=== PATIENT | female | born 1955 | race Caucasian/White ===

== ENCOUNTER 2024-08-21 00:40 | Inpatient (IN) | payer MEDICARE, BC ==
[~2024-08-21] VITALS: Ht 175.3 cm; Wt 75.3 kg
[2024-08-21 14:00] VITALS: BP 120/77; PULSE 74; RESP 16; TEMP 97.8; O2SAT 98
--- NOTE | 2024-08-21 15:27 | DVHHP2 ---
History of Present Illness Reason for Visit: Abdominal pain History of Present Illness 68-year-old female who is transferred from [facility] to get Interventional Radiology to place a cholecystostomy tube due to the fact that she developed gallbladder disease but she could not get the surgery done because of her liver cirrhosis Apparently she went therefore pneumonia and was treated therefore the pneumonia but she was having abdominal pain and was found to have cholelithiasis and therefore she was sent here She was admitted directly She is complaining of right upper quadrant abdominal pain She says she is hungry and wants to eat Workup at [facility]: MRCP: Acute cholecystitis with stones and sludge HIDA: Same US abd: Pancreatic head mass: 1.1 x 1.3 cm 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 (Multiple sclerosis) GI: Other (Cirrhosis) Endocrine: Diabetes Review of Systems Gastrointestinal: Abdominal Pain Allergies: Coded Allergies: Ciprofloxacin (Verified Allergy, Unknown, 08/21/24) Levofloxacin (Verified Allergy, Unknown, 08/21/24) Phenytoin (Verified Allergy, Unknown, 08/21/24) Sulfamethoxazole w/Trimethoprim (Verified Allergy, Unknown, 08/21/24) Exam Vital Signs Vital Signs Date Time Temp Pulse Resp B/P (MAP) Pulse Ox O2 Delivery O2 Flow Rate FiO2 08/21/24 14:00 97.8 74 16 120/77 (91) 98 97.8 General Appearance: Alert, Oriented X3, Cooperative, No acute distress Respiratory: Clear to auscultation, Normal air movement Cardiovascular: Regular rate, Normal S1, Normal S2 Abdominal: Normal bowel sounds, Soft, No tenderness, No hepatospenomegaly, No masses Extremities: No edema Assessment/Plan Assessment/Plan Acute cholecystitis Liver cirrhosis Type 2 diabetes Multiple sclerosis Recent pneumonia Thrombocytopenia Chronic pain Pancreatic head mass Plan Admit to med surge Low-fat diet Consult IR for cholecystostomy Consult GI Morphine as needed Zofran as needed Pepcid IV Monitor closely Accu-Cheks Full code Advance directives discussed for 17 minutes Plan discussed with: Patient Date of Service: August 21, 2024 Billing Provider: TREY NARAYAN MD Common Visit Codes: [id number] INP/OBS CARE (HIGH) Secondary Visit Codes: [id number] CARE PLAN 30 MINUTES TREY NARAYAN MD August 21, 2024 15:27
[2024-08-21] MEDS ORDERED: NITROGLYCERIN 0.4 MG SL TAB SL PRN (15:30)
[2024-08-21] MEDS ORDERED: ONDANSETRON HCL 4 MG/2 ML VIAL IV PRN (15:30)
[2024-08-21] MEDS ORDERED: DEXTROSE (50%) 50ML SYRG IV PRN (15:45)
[2024-08-21] MEDS: MORPHINE SULFATE INJ 2 MG/ml SYRG IV PRN ×2 (15:56)
[2024-08-21 16:22] VITALS: PULSE 77
[2024-08-21 16:33] LABS: Basophils # (auto) 0 10 ^3/uL (0-0.2); Eosinophils # (auto) 0.1 10 ^3/uL (0-0.8); Hemoglobin 10.4 g/dL (12.2-16.2); Lymphocytes # (auto) 0.4 10 ^3/uL (0.4-5.4); Monocytes # (auto) 0.3 10 ^3/uL (0-1.3); Neutrophils # (auto) 1.8 10 ^3/uL (1.6-8.6); Nucleated Red Blood Cells % 0.1 %; Red Blood Cells 3.93 10^6/uL (4.0-5.20); White Blood Cell 2.6 10^3/uL (4.4-10.8)
[2024-08-21 16:35] LABS: Basophils % (auto) 0.6 % (0.0-2.0); Eosinophils % (auto) 3.8 % (0.0-7.0); Hematocrit 32.6 % (36.0-46.0); Lymphocytes % (auto) 14.5 % (10.0-50.0); Mean Corpuscular Hemoglobin 26.5 pg (28.0-32.0); Mean Corpuscular Volume 82.8 fL (80.0-100.0); Neutrophils % (auto) 70.1 % (37.0-80.0); Platelet Count (auto) 94 10^3/uL (140-450); Red Cell Distribution Width 17.5 % (11.8-14.3)
[2024-08-21] MEDS ORDERED: NALO4SPR2 (16:44)
[2024-08-21] MEDS ORDERED: ZOFR4T PO (16:44)
[2024-08-21] MEDS ORDERED: METF-929 PO (16:44)
[2024-08-21] MEDS ORDERED: INSU1INJ19 SC (16:44)
[2024-08-21] MEDS ORDERED: BACL10TA PO (16:44)
[2024-08-21] MEDS ORDERED: GABA-1250 PO (16:44)
[2024-08-21] MEDS ORDERED: LEV75T PO (16:44)
[2024-08-21 16:48] VITALS: BP 133/71; PULSE 76; RESP 16; TEMP 98.2; O2SAT 97
[2024-08-21 16:48] LABS: Alanine Aminotransferase 21 U/L (7-40); Albumin 3.9 g/dL (3.2-4.8); Alkaline Phosphatase 105 U/L (46-116); Anion Gap 9 (5-15); Aspartate Aminotransferase 25 U/L (13-40); BUN/Creatinine Ratio 19.8 (10.0-20.0); Blood Urea Nitrogen 17 mg/dL (9-23); Calcium 9.9 mg/dL (8.7-10.4); Carbon Dioxide 25 mmol/L (20-31); Chloride 105 mmol/L (98-107); INR 1.16 (0.9-1.15); Partial Thromboplastin Time 30.8 SEC (24.5-34.5); Potassium 3.7 mmol/L (3.5-5.1); Prothrombin Time 12.1 sec (9.3-11.8); Sodium 139 mmol/L (136-145); Total Protein 7.5 g/dL (5.7-8.2)
[2024-08-21 16:49] LABS: Bilirubin, Total 0.5 mg/dL (0.2-1.0); Glucose 183 mg/dL (74-106)
[2024-08-21] MEDS ORDERED: SIMV40TA18 PO (16:52)
[2024-08-21] MEDS ORDERED: PANT40T PO (16:52)
[2024-08-21] MEDS ORDERED: OXY5T PO (16:52)
[2024-08-21] MEDS ORDERED: RIME75TA PO (16:52)
[2024-08-21] MEDS ORDERED: VENL225T20 PO (16:52)
[2024-08-21] MEDS ORDERED: TOPI25CA5 PO (16:52)
[2024-08-21] MEDS: AMPICILLIN & SULBACTAM SODIUM 3 GM in SODIUM CHL 0.9% 100 ML IV SCH (17:07)
[2024-08-21] MEDS: InsuLIN REG 1unit/0.01ml Soln (100units/ml) SC SCH (17:07)
[2024-08-21] MEDS: ACCU-CHEK COMFORT CURVE STRIP VI SCH (17:07)
[2024-08-21] MEDS: OXYCODONE W/ ACETAMINOPHEN 5/325MG TABLET PO PRN (17:38)
--- NOTE | 2024-08-21 18:38 | DVHINCON2 ---
Date of service: August 21, [address] hoyt Reason for Consultation This 68-year-old female was transferred from [facility] with problems with gallbladder disease History of Present Illness Patient admitted with gallbladder problems apparently she could not get the surgery done because of the liver cirrhosis she was admitted for pneumonia there and was getting some abdominal pain and hence workup was done which showed the by cholelithiasis. There was apparently distention of the common bile duct also but ultrasound does not show any problems CA HIDA scan showed gallbladder functioning patient also has got cirrhosis of the liver. There was some ultrasound showed some possible pancreatic mass but HIDA scan shows if possible small lipoma patient denies any weight loss patient has got diabetes since 1989 Patient is not jaundiced LFTs are normal Past Medical History Multiple sclerosis cirrhosis diabetes Past Surgical History None Family History Noncontributory Social History Denies smoking or drinking Allergies: Coded Allergies: Ciprofloxacin (Verified Allergy, Unknown, 08/21/24) Levofloxacin (Verified Allergy, Unknown, 08/21/24) Phenytoin (Verified Allergy, Unknown, 08/21/24) Sulfamethoxazole w/Trimethoprim (Verified Allergy, Unknown, 08/21/24) Home Meds Reported Medications Venlafaxine Hcl (Venlafaxine Hcl Er) 225 Mg Tab, 1 TAB PO DAILY, #30 TAB 1 Refill 08/21/24 Topiramate (Topiramate) 25 Mg Cap, 25 MG PO DAILY for 30 Days, MG 08/21/24 Simvastatin (Simvastatin) 40 Mg Tab, 40 MG PO HS for 30 Days 08/21/24 Rimegepant Sulfate (Nurtec) 75 Mg Tab, 75 MG PO DAILY PRN for FOR HEADACHE, TAB 08/21/24 Oxycodone Hcl (OXYCODONE HCL) 5 Mg Tb, 10 MG PO, TAB 08/21/24 Pantoprazole Sodium Sesquihydr (Pantoprazole Sodium) 40 Mg Tab, 40 MG PO BID, TAB 08/21/24 Ondansetron Odt 4MG Tab (ZOFRAN PO) 4 Mg Tb, 4 MG PO Q4HPRN PRN for NAUSEA / VOMITING, TAB ODT TAB-DISSOLVE IN MOUTH, THEN SWALLOW 08/21/24 Naloxone HCl (Narcan) 4 Mg/0.1 Ml Spr, 4 MG NA TIDPRN, SPRAY 08/21/24 Metformin HCl (Metformin Hydrochloride) 1,000 Mg Tab, 1000 MG PO BID, TAB 08/21/24 Levothyroxine Sodium (Synthroid) 75 Mcg Tab, 1 TAB PO DAILY, #30 TAB 5 Refills 08/21/24 Gabapentin (Gabapentin) 300 Mg Cap, 400 MG PO TID for 30 Days, MG 08/21/24 Insulin Glargine (Basaglar Kwikpen) 100 Unit/Ml Inj, 38 UNIT SC HS, INJ 08/21/24 Baclofen (Baclofen) 10 Mg Tab, 10 MG PO DAILY for 30 Days, MG 08/21/24 Current Medications Current Medications Medications (Trade) Dose Ordered Sig/Kenzie Route PRN Reason Start Time Stop Time Status Last Admin Nitroglycerin (Ntrostat Sublingual) 0.4 mg Q5MINP PRN SL FOR CHEST PAIN 08/21/24 15:30 Morphine Sulfate 2 mg Q30M PRN IV FOR CHEST PAIN 08/21/24 15:30 Morphine Sulfate 2 mg Q4HPRN PRN IV SEVERE PAIN (7-10 PAIN SCALE) 08/21/24 15:30 08/21/24 15:56 Ondansetron HCl (Zofran) 4 mg Q4HPRN PRN IV NAUSEA / VOMITING 08/21/24 15:30 Famotidine (Pepcid Injection) 20 mg DAILY IV 08/22/24 10:00 Ampicillin Sodium/ Sulbactam Sodium 3 gm/Sodium Chloride 100 ml @ 100 mls/hr Q6H IV 08/21/24 15:45 08/21/24 17:07 Baclofen (Liorisal Tablet) 10 mg DAILY PO 08/22/24 10:00 Docusate Sodium (Colace Capsule) 100 mg BID PO 08/21/24 22:00 Diagnostic Test (Pha) (Accu-Chek Comfort Curve T) 1 strip ACHS 08/21/24 17:00 08/21/24 17:07 Insulin Human Regular (InsuLIN R) ACHS SC 08/21/24 17:00 08/21/24 17:07 Dextrose 50 ml UD PRN IV Blood Sugar LESS THAN 60 08/21/24 15:45 Gabapentin (Neurontin Capsule) 300 mg TID PO 08/21/24 22:00 Levothyroxine Sodium (Synthroid Tablet) 75 mcg QAM@0600 PO 08/22/24 06:00 Magnesium Oxide (Mag-Ox Tablet) 400 mg BID PO 08/21/24 22:00 Topiramate (Topamax) 25 mg DAILY PO 08/22/24 10:00 Oxycodone/ Acetaminophen (Percocet 5/ 325MG Tablet) 1 tab Q6HP PRN PO MODERATE PAIN (4-6 PAIN SCALE) 08/21/24 16:30 08/21/24 17:38 Review of Systems Non contributory Vital Signs Vital Signs Date Time Temp Pulse Resp B/P (MAP) Pulse Ox O2 Delivery O2 Flow Rate FiO2 08/21/24 16:48 98.2 76 16 133/71 (91) 97 98.2 08/21/24 14:25 Room Air* 0 21 Physical Exam Moderately built and nourished female in no acute distress Vitals stable Lungs are clear Vascular unremarkable Abdomen is soft mild epigastric tenderness no rigidity no guarding no masses Extremities no edema Labs/Diagnostic Data Labs Test 08/21/24 16:48 08/21/24 16:11 Range/Units POC Glucose 169 H 70-106 mg/dl White Blood Count 2.6 L 4.4-10.8 10^3/uL Red Blood Count 3.93 L 4.0-5.20 10^6/uL Hemoglobin 10.4 L 12.2-16.2 g/dL Hematocrit 32.6 L 36.0-46.0 % Mean Corpuscular Volume 82.8 80.0-100.0 fL Mean Corpuscular Hemoglobin 26.5 L 28.0-32.0 pg Mean Corpuscular Hemoglobin Concent 32.0 32.0-36.0 g/dL Red Cell Distribution Width 17.5 H 11.8-14.3 % Platelet Count 94 L 140-450 10^3/uL Mean Platelet Volume 9.3 6.9-10.8 fL Neutrophils (%) (Auto) 70.1 37.0-80.0 % Lymphocytes (%) (Auto) 14.5 10.0-50.0 % Monocytes (%) (Auto) 11.0 0.0-12.0 % Eosinophils (%) (Auto) 3.8 0.0-7.0 % Basophils (%) (Auto) 0.6 0.0-2.0 % Neutrophils # (Auto) 1.8 1.6-8.6 10 ^3/uL Lymphocytes # (Auto) 0.4 0.4-5.4 10 ^3/uL Monocytes # (Auto) 0.3 0-1.3 10 ^3/uL Eosinophils # (Auto) 0.1 0-0.8 10 ^3/uL Basophils # (Auto) 0 0-0.2 10 ^3/uL Nucleated Red Blood Cells 0.1 % Prothrombin Time 12.1 H 9.3-11.8 sec Prothrombin Time INR 1.16 H 0.9-1.15 Activated Partial Thromboplast Time 30.8 24.5-34.5 SEC Sodium Level 139 136-145 mmol/L Potassium Level 3.7 3.5-5.1 mmol/L Chloride Level 105 98-107 mmol/L Carbon Dioxide Level 25 20-31 mmol/L Anion Gap 9 5-15 Blood Urea Nitrogen 17 9-23 mg/dL Creatinine 0.86 0.550-1.02 mg/dL Glomerular Filtration Rate Calc 74 >90 mL/min BUN/Creatinine Ratio 19.8 10.0-20.0 Serum Glucose 183 H 74-106 mg/dL Calcium Level 9.9 8.7-10.4 mg/dL Total Bilirubin 0.5 0.2-1.0 mg/dL Aspartate Amino Transferase (AST) 25 13-40 U/L Alanine Aminotransferase (ALT) 21 7-40 U/L Alkaline Phosphatase 105 46-116 U/L Total Protein 7.5 5.7-8.2 g/dL Albumin 3.9 3.2-4.8 g/dL Assessment 68-year-old with problems possible gallbladder disease admitted with pneumonia was found to have gallstones on ultrasound also possible cirrhosis her liver enzymes are normal she has got pancytopenia consistent with possible liver disease with ultrasound showing possible cirrhosis Denies drinking HIDA scan showed cystic This can showed gallbladder not visualized Ultrasound gallstones sludge MRCP normal ducts Clinical impression Cirrhosis gallstones Plan/Recommendation We will recommend surgical consult and further workup accordingly We will also recommend a workup for liver disease including hepatitis panel DAMION liver copper studies etc. also Thank you Dr. Kamilla Jimenes discussed with: Patient ELEANOR IBARRA MD August 21, 2024 18:38
[2024-08-21 20:00] VITALS: PULSE 76; PULSE 83; RESP 17; O2SAT 98
[2024-08-21 21:00] VITALS: BP 120/66; PULSE 66; RESP 17; TEMP 98; O2SAT 98
[2024-08-21] MEDS: DOCUSATE SOD 100 MG CAP PO SCH (21:34)
[2024-08-21] MEDS: GABAPENTIN 300 MG CAP PO SCH (21:34)
[2024-08-21] MEDS: MAGNESIUM OXIDE 400 MG TAB PO SCH (21:35)
[2024-08-22] VITALS (14 sets, daily range): BP systolic 102–130; BP diastolic 57–70; PULSE 70–82; RESP 12–18; TEMP 97.5–98.2; O2SAT 94–99
[2024-08-22] MEDS: LEVOTHYROXINE SODIUM 25 MCG TAB PO SCH (05:09)
[2024-08-22] MEDS: IODIXANOL 320MG/ML 100ML BTL IV ONE (07:44)
[2024-08-22] MEDS: fentaNYL CITRATE 100 MCG/2 ML VL ONE (08:07)
[2024-08-22] MEDS: LIDOCAINE 2%HCL (LOCAL ANESTH.) INJ 20ML MDV ONE (08:08)
[2024-08-22] MEDS: MIDAZOLAM HCL 2MG/2ML 2ml VIAL (1mg/ml) ONE (08:08)
--- NOTE | 2024-08-22 09:36 | DVH ---
US US GUIDANCE FOR NEEDLE PLACEME, HISTORY: GALLBLADDER DRAINAGE due to acute cholecystitis, positive HIDA scan , abdominal pain. PROCEDURE: Informed consent was obtained. The patient was placed in supine position, and initial limi tanisha ultrasound evaluation of the RUQ abdomen was obtained. The skin overlying the gallbladder was pre pped with chlorhexidine which was allowed to dry and draped in the usual sterile fashion. Time out wa s performed. IV sedation and 1% lidocaine local anesthetic were administered. Using US needle biopsy guide, a 21 g Accu Stick needle was advanced into the gallbladder via a intercostal /,transhepatic ap proach. Following aspiration of bile, a small amount of contrast was injected to delineate the viscou s. The needle was then exchanged over mandrill wire to a non-vascular access set, through which a Amp latz guidewire was advanced into the gallbladder. Following serial dilation, an 8.5 Bel[place]ian multipurpo se pigtail catheter was placed within the gallbladder. Approximately 2 cc of fluid was withdrawn and sent to the laboratory for analysis. The drain was secured in place and attached to gravity drainage. A sterile dressing was applied. No immediate complication was identified. DAP 331 FLUOROSCOPY TIME: 1.8 minutes. CONTRAST USED: 10 mL . SEDATION: Dr. Ileana Magallon was personally responsible for the administration of moderate sedation during the procedure performed, including the use of an independent trained observer who had no other duties during the procedure. The drugs utilized were IV fentanyl and versed (see nursing log for details). The total time of supervision by the attending physician was [id number] minutes. FINDINGS: Limited US scan of the right upper abdomen demonstrates the distended gallbladder. Aspirate d bile is thick. Completion image demonstrates good positioning of the drainage catheter. The cystic duct is obstructed. IMPRESSION: Obstructed cystic duct. US/fluoro-guided percutaneous 8.5 anguillan cholecystostomy tube placement. PLAN: This tube will need to remain in place for at least 6-8 weeks before removal, so as to prevent bile leakage. If cholecystectomy is not planned, please have patient follow-up with IR at discharge t o schedule cholangiogram in 6-8 weeks. If cystic duct patency and tract maturation is established, we will consider clamp trial prior to removal of the tube in 1-2 weeks.
[2024-08-22] MEDS: TOPIRAMATE 25 MG TAB PO SCH (10:36)
[2024-08-22] MEDS: FAMOTIDINE (10MG/ML) 2ML VL IV SCH (10:38)
[2024-08-22 11:01] LABS: Hepatitis B Surface Antigen Negative (Negative); Hepatitis C Antibody Negative (Negative)
[2024-08-22] MEDS: BACLOFEN 10 MG TAB PO SCH (11:33)
[2024-08-22] MEDS: GABAPENTIN 400 MG CAP PO SCH (14:00)
[2024-08-22] MEDS ORDERED: GABAPENTIN 300 MG CAP PO SCH (14:00)
--- NOTE | 2024-08-22 14:44 | DVHPN2 ---
Subjective Complains of abdominal pain Changes from previous H/P or p: Changes Gastrointestinal: Abdominal Pain Objective Vitals Vital Signs Date Time Temp Pulse Resp B/P (MAP) Pulse Ox O2 Delivery O2 Flow Rate FiO2 08/22/24 12:44 97.5 73 16 112/70 (84) 99 97.5 08/22/24 08:00 Room Air* 0 21 Intake/Output Intake and Output 08/22/24 07:00 Intake Total 1540 ml Output Total 350 ml Balance 1190 ml Intake Oral 1240 ml IV Total 300 ml Output Urine Total 350 ml # Voids 8 # Bowel Movements 1 General Appearance: Alert, Oriented X3, Cooperative, No acute distress Lungs: Clear to auscultation, Normal air movement Cardiovascular: Regular rate, Normal S1, Normal S2, No murmurs Abdomen: Normal bowel sounds, Soft, No tenderness Extremities: No edema Medications Current Medications Medications Dose Ordered Sig/Kenzie Route Start Time Stop Time Status Last Admin Dose Admin Nitroglycerin 0.4 mg Q5MINP PRN SL 08/21/24 15:30 Morphine Sulfate 2 mg Q30M PRN IV 08/21/24 15:30 Morphine Sulfate 2 mg Q4HPRN PRN IV 08/21/24 15:30 08/22/24 10:34 2 MG Ondansetron HCl 4 mg Q4HPRN PRN IV 08/21/24 15:30 Famotidine 20 mg DAILY IV 08/22/24 10:00 08/22/24 10:38 20 MG Ampicillin Sodium/ Sulbactam Sodium 3 gm/Sodium Chloride 100 ml @ 100 mls/hr Q6H IV 08/21/24 15:45 08/22/24 10:39 100 MLS/HR Baclofen 10 mg DAILY PO 08/22/24 10:00 08/22/24 11:33 10 MG Docusate Sodium 100 mg BID PO 08/21/24 22:00 08/22/24 10:36 100 MG Diagnostic Test (Pha) 1 strip ACHS 08/21/24 17:00 08/22/24 11:35 1 STRIP Insulin Human Regular ACHS SC 08/21/24 17:00 08/22/24 11:37 2 UNITS Dextrose 50 ml UD PRN IV 08/21/24 15:45 Levothyroxine Sodium 75 mcg QAM@0600 PO 08/22/24 06:00 08/22/24 05:09 75 MCG Magnesium Oxide 400 mg BID PO 08/21/24 22:00 08/22/24 10:36 400 MG Topiramate 25 mg DAILY PO 08/22/24 10:00 08/22/24 10:36 25 MG Oxycodone/ Acetaminophen 1 tab Q6HP PRN PO 08/21/24 16:30 08/22/24 12:13 1 TAB Gabapentin 400 mg TID PO 08/22/24 14:00 Cancel Gabapentin 400 mg TID PO 08/22/24 22:00 Laboratory Results Laboratory Tests 08/21/24 16:11 Chemistry Test 08/21/24 16:11 Albumin 3.9 g/dL (3.2-4.8) Calcium Level 9.9 mg/dL (8.7-10.4) Total Protein 7.5 g/dL (5.7-8.2) Coagulation Test 08/21/24 16:11 Prothrombin Time 12.1 sec (9.3-11.8) H Prothrombin Time INR 1.16 (0.9-1.15) H Activated Partial Thromboplast Time 30.8 SEC (24.5-34.5) LFT Test 08/21/24 16:11 Alanine Aminotransferase (ALT) 21 U/L (7-40) Alkaline Phosphatase 105 U/L (46-116) Aspartate Amino Transferase (AST) 25 U/L (13-40) Total Bilirubin 0.5 mg/dL (0.2-1.0) Microbiology Microbiology Date/Time Source Procedure Growth Status 08/22/24 08:54 Gallbladder Fluid Gram Stain - Final Resulted 08/22/24 08:54 Gallbladder Fluid Body Fluid Culture Pending Resulted Assessment/Plan Assessment/Plan Acute cholecystitis Liver cirrhosis Type 2 diabetes Multiple sclerosis Recent pneumonia Thrombocytopenia Chronic pain Pancreatic head mass Plan Admit to med surge Low-fat diet Consult IR for cholecystostomy Consult GI Morphine as needed Zofran as needed Pepcid IV Monitor closely Accu-Cheks Full code Advance directives discussed for 17 minutes 08/22/2024: Continue the current management with IV antibiotics Unasyn Status post cholecystostomy tube placement Pain management Watch in the hospital 1 more day Discharge planning for tomorrow Plan discussed with: Patient My Orders Orders - TREY NARAYAN MD Procedure Category Date Status Time Admit ADMIT 08/21/24 Transmitted 15:20 Nitroglycerin PHA 08/21/24 In Process Sublingual (Ntrostat 15:30 Morphine Sulfate PHA 08/21/24 In Process Injection 15:30 Stat Ekg For Chest YOUNG 08/21/24 In Process Pain 15:20 Notify Of Changes YOUNG 08/21/24 In Process From Base 15:20 Vaccine Customer Representative For YOUNG 08/21/24 In Process 24 Hours 15:20 Emergency Dysrhythmia YOUNG 08/21/24 In Process Protocol 15:20 Rhythm Strips Once YOUNG 08/21/24 In Process Every Shift 15:20 Oxygen By Nasal RT 08/21/24 Transmitted Cannula 15:20 Morphine Sulfate PHA 08/21/24 In Process Injection 15:30 Ondansetron Hcl PHA 08/21/24 In Process (Zofran) 15:30 Famotidine Injection PHA 08/22/24 In Process (Pepcid Injection) 10:00 Mechanical Soft Diet DIET 08/21/24 Transmitted Dinner * Radiologist Consult CONS 08/21/24 Transmitted 15:26 Code Status CODE 08/21/24 Transmitted 15:27 Ampicillin & PHA 08/21/24 In Process Sulbactam Sodium 15:45 Baclofen Tablet PHA 08/22/24 In Process (Liorisal Tablet) 10:00 Docusate Sodium PHA 08/21/24 In Process Capsule (Colace 22:00 Glucose Blood PHA 08/21/24 In Process (Accu-Chek Comfort 17:00 Insulin R (Human) PHA 08/21/24 In Process (Insulin R) 17:00 Dextrose 50% Syringe PHA 08/21/24 In Process 15:45 Levothyroxine Tablet PHA 08/22/24 In Process (Synthroid Tablet) 06:00 Magnesium Oxide PHA 08/21/24 In Process Tablet (Mag-Ox Tablet) 22:00 Topiramate (Topamax) PHA 08/22/24 In Process 10:00 * Gi Dvh Manager Route CONS 08/21/24 Transmitted 15:48 Oxycodone W/ Acet PHA 08/21/24 In Process 5/325mg Tab (Percocet 16:30 Heparin In Ns PHA 08/22/24 In Process 1000units/500ml 07:44 Percutaneous Cholangio XY 08/22/24 Resulted 09:13 Gabapentin Capsule PHA 08/22/24 In Process (Neurontin Capsule) 22:00 Date of Service: August 22, 2024 Billing Provider: TREY NARAYAN MD Common Visit Codes: [id number] INP/OBS CARE(HIGH) TREY NARAYAN MD August 22, 2024 14:44
[2024-08-23] VITALS (8 sets, daily range): BP systolic 101–130; BP diastolic 65–72; PULSE 71–82; RESP 15–20; TEMP 97.6–98.3; O2SAT 93–100
[2024-08-23] MEDS ORDERED: AUG875T PO (12:42)
--- NOTE | 2024-08-23 12:44 | DVHDS2 ---
Discharge Summary Date of Admission August 21, 2024 at 13:50 Date of Discharge: August 23, 2024 Labs/Diagnostic Data: Laboratory Results Test 08/23/24 11:00 08/21/24 16:11 POC Glucose 249 mg/dl (70-106) White Blood Count 2.6 10^3/uL (4.4-10.8) Red Blood Count 3.93 10^6/uL (4.0-5.20) Hemoglobin 10.4 g/dL (12.2-16.2) Hematocrit 32.6 % (36.0-46.0) Mean Corpuscular Volume 82.8 fL (80.0-100.0) Mean Corpuscular Hemoglobin 26.5 pg (28.0-32.0) Mean Corpuscular Hemoglobin Concent 32.0 g/dL (32.0-36.0) Red Cell Distribution Width 17.5 % (11.8-14.3) Platelet Count 94 10^3/uL (140-450) Mean Platelet Volume 9.3 fL (6.9-10.8) Neutrophils (%) (Auto) 70.1 % (37.0-80.0) Lymphocytes (%) (Auto) 14.5 % (10.0-50.0) Monocytes (%) (Auto) 11.0 % (0.0-12.0) Eosinophils (%) (Auto) 3.8 % (0.0-7.0) Basophils (%) (Auto) 0.6 % (0.0-2.0) Neutrophils # (Auto) 1.8 10 ^3/uL (1.6-8.6) Lymphocytes # (Auto) 0.4 10 ^3/uL (0.4-5.4) Monocytes # (Auto) 0.3 10 ^3/uL (0-1.3) Eosinophils # (Auto) 0.1 10 ^3/uL (0-0.8) Basophils # (Auto) 0 10 ^3/uL (0-0.2) Nucleated Red Blood Cells 0.1 % Prothrombin Time 12.1 sec (9.3-11.8) Prothrombin Time INR 1.16 (0.9-1.15) Activated Partial Thromboplast Time 30.8 SEC (24.5-34.5) Sodium Level 139 mmol/L (136-145) Potassium Level 3.7 mmol/L (3.5-5.1) Chloride Level 105 mmol/L (98-107) Carbon Dioxide Level 25 mmol/L (20-31) Anion Gap 9 (5-15) Blood Urea Nitrogen 17 mg/dL (9-23) Creatinine 0.86 mg/dL (0.550-1.02) Glomerular Filtration Rate Calc 74 mL/min (>90) BUN/Creatinine Ratio 19.8 (10.0-20.0) Serum Glucose 183 mg/dL (74-106) Calcium Level 9.9 mg/dL (8.7-10.4) Total Bilirubin 0.5 mg/dL (0.2-1.0) Aspartate Amino Transferase (AST) 25 U/L (13-40) Alanine Aminotransferase (ALT) 21 U/L (7-40) Alkaline Phosphatase 105 U/L (46-116) Total Protein 7.5 g/dL (5.7-8.2) Albumin 3.9 g/dL (3.2-4.8) Hepatitis B Surface Antigen Negative (Negative) Hepatitis C Antibody Negative (Negative) Other Laboratory Tests 08/21/24 16:11 Brief Hx & Hospital Course: Final diagnoses: Acute cholecystitis Liver cirrhosis Type 2 diabetes Multiple sclerosis Recent pneumonia Thrombocytopenia Chronic pain Pancreatic head mass 68-year-old female who was transferred here to have a cholecystostomy tube placement done since the facility where she was did not have the capacity to do the procedure She has a done here successfully with no complications yesterday and today she is doing well Vital signs are stable The tube is draining well The patient is stable for discharge She will be given Augmentin for 7 days Resume other home medications Follow up with the primary care physician as soon as possible for follow up She will need a referral for higher level of care as an outpatient for possible cholecystectomy at a higher risk tertiary facility because of her underlying liver cirrhosis She also has a pancreatic head mass which needs monitoring, she is aware of it Stable for discharge Condition at Discharge: Stable Final Diagnosis/Problems List Acute cholecystitis Liver cirrhosis Type 2 diabetes Multiple sclerosis Recent pneumonia Thrombocytopenia Chronic pain Pancreatic head mass Discharge Disposition: Home SNF Discharge Will this Physician continue t: No Discharge Instruct/Medications Diet: Consistent carbohydrate, Cardiac 2g Na,low cholest Activity: No Restrictions, As Tolerated Follow Up/Referral: PCP as soon as possible Medications: Same home medications Augmentin 875 mg twice a day for 7 days Discharge Statement: "Patient was advised to return to the ER or call 911 if any headaches, dizziness, shortness of breath, chest pain, abdominal pain, bleeding, fevers, or worsening of medical condition. Patient was counseled about treatment plan, medications, possible side effects, patientverbalized understanding. All questions were answered to the best of my ability. This discharge took greater then 30 minutes in planning, reviewing documentation, counseling the patient, and discussing with other team members." ASSESSMENT ASSESSMENT Assessment Acute cholecystitis Liver cirrhosis Type 2 diabetes Multiple sclerosis Recent pneumonia Thrombocytopenia Chronic pain Pancreatic head mass Date of Service: August 23, 2024 Billing Provider: TREY NARAYAN MD Common Visit Codes: [id number] DISCH DAY >30min TREY NARAYAN MD August 23, 2024 12:44
[2024-08-23] MEDS: OXYCODONE W/ ACETAMINOPHEN 5/325MG TABLET PO PRN (15:36)
== END 2024-08-23 20:30 | disposition home or self-care (01) | DRG 445 ==
LOC: WEST WING 13:50
PROVIDERS: ADMIT Internal Medicine Geriatric Medicine; ATTEND Internal Medicine Geriatric Medicine
PROC: 0F9430Z Drainage of Gallbladder with Drainage Device, Percutaneous Approach (ICD-10-PCS; principal; 2024-08-22)
DX: K80.00 Calculus of gallbladder with acute cholecystitis without obstruction (principal); D61.818 Other pancytopenia; K74.60 Unspecified cirrhosis of liver; G35 Multiple sclerosis; E11.9 Type 2 diabetes mellitus without complications; K86.9 Disease of pancreas, unspecified; G89.29 Other chronic pain; Z88.1 Allergy status to other antibiotic agents; Z88.3 Allergy status to other anti-infective agents; Z87.01 Personal history of pneumonia (recurrent); Z79.4 Long term (current) use of insulin; Z79.899 Other long term (current) drug therapy; Z79.84 Long term (current) use of oral hypoglycemic drugs
CPT/HCPCS: 36415; 47532; 76942; 80053; 82962; 85025; 85610; 85730; 86803; 87205; 87340; 99152; G0378; J1815; J2250; J3490; Q9967